=== PATIENT | male | born 2000 | race Caucasian/White ===

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

== ENCOUNTER 2019-01-13 22:49 | Emergency (ER) | payer OTHER ==
[~2019-01-13] VITALS: Ht 188 cm; Wt 70.5 kg
[2019-01-13 23:08] VITALS: BP 123/74; PULSE 97; TEMP 99.1
== END 2019-01-14 00:30 | disposition left against medical advice (07) ==
LOC: COL.ER 22:49
DX: S89.91XA Unspecified injury of right lower leg, initial encounter (principal); X58.XXXA Exposure to other specified factors, initial encounter; Y93.66 Activity, soccer

== ENCOUNTER 2019-08-09 23:16 | Emergency (ER) | payer OTHER ==
[~2019-08-09] VITALS: Ht 188 cm; Wt 72.7 kg
[2019-08-09 23:54] LABS: BASO # 0.1 (0.0-0.2); BASO % 0.4 % (0.0-2.0); EOS % 0.1 % (0-4.0); GRAN # 14.7 (1.4-6.5); GRAN % 81.6 % (42.2-75.2); HEMATOCRIT 48.4 % (36.0-47.0); HEMOGLOBIN 16.5 g/dl (12.5-16.1); LYMPH # 1.9 (1.2-3.4); LYMPH % 10.8 % (20.0-51.0); MEAN CELL VOLUME 88 fl (80.0-95.0); MEAN CORPUSCULAR HEMOGLOBIN 30 pg (26.0-32.0); MEAN CORPUSCULAR HGB CONC 34 g/dl (33.0-37.0); MEAN PLATELET VOLUME 9.3 fl (7.4-10.4); MONO # 1.2 (0.1-0.6); MONO % 6.6 % (1.7-9.3); PLATELET COUNT 299 K/mm3 (130-400); RED BLOOD COUNT 5.49 M/mm3 (4.20-5.60); REDCELL DISTRIBUTION WIDTH-CV 12.5 % (11.5-14.5)
[2019-08-10 00:19] LABS: ALBUMIN 4.8 gm/dL (3.5-5.0); BILIRUBIN,TOTAL 0.9 mg/dL (0.0-1.0); CALCIUM 9.9 mg/dL (8.4-10.2); CREATININE, serum 0.94 (0.66-1.25)
[2019-08-10 01:59] VITALS: BP 116/76; PULSE 86; TEMP 98.4
== END 2019-08-10 02:02 | disposition home or self-care (01) ==
LOC: COL.ER 23:16
PROVIDERS: Emergency Medicine
DX: F10.129 Alcohol abuse with intoxication, unspecified (principal); R19.7 Diarrhea, unspecified; R11.2 Nausea with vomiting, unspecified; Z90.89 Acquired absence of other organs
CPT/HCPCS: J2405; J7030